=== PATIENT | male | born 1995 | race African-American/Black ===

== ENCOUNTER 2023-10-13 14:10 | Emergency (ER) | payer OTHER, SELFPAY ==
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
[2023-10-13 14:18] VITALS: BP 147/95; PULSE 94; RESP 16; TEMP 36.6; O2SAT 99
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
[2023-10-13 18:36] VITALS: BP 138/76; PULSE 78; RESP 20; TEMP 36.8; O2SAT 99
[2023-10-13] MEDS: IBUPROFEN 600 MG TABLET PO (18:51)
[2023-10-13 18:52] VITALS: BP 155/87; PULSE 75; RESP 16; TEMP 36.8; O2SAT 95
== END 2023-10-13 20:54 | disposition home or self-care (01) ==
LOC: ANHED 19:53
PROVIDERS: Emergency Provider Physician Assistant
DX: S29.9XXA Unspecified injury of thorax, initial encounter (principal); S89.91XA Unspecified injury of right lower leg, initial encounter; R93.7 Abnormal findings on diagnostic imaging of other parts of musculoskeletal system; V43.52XA Car driver injured in collision with other type car in traffic accident, initial encounter
CPT/HCPCS: 72072; 72100; 72128; 73564; 99284; A9270